=== PATIENT | male | born 1980 | race Hispanic/Latino ===

== ENCOUNTER 2017-09-25 15:12 | Inpatient (IN) | payer SELFPAY ==
[~2017-09-25] VITALS: Ht 172.7 cm; Wt 160.7 kg
[~2017-09-25 15:12] MED LIST: ACETAMINOPHEN500 MG PO; AMLODIPINE BESYL5 MG PO; ASPIR-TRIN325 M1 PO; ASPIRIN325 MG PO; ASPIRIN81 M1 PO; ATENOLOL100 MG PO; CARDIZEM120 MG PO; Ecotrin PO; LABETALOL HCL200 MG PO; LISINOPRIL20 MG PO; LISINOPRIL40 MG PO; MOTRIN800 MG PO; NOHOMEMEDS; NORMODYNE,TRAN200 MG PO; PHENERGAN-CODE120 ML PO; PHENTERMINE HCL30 MG PO; Tenormin PO; Tylenol Regular Stre PO; Zestril,Prinivil PO
[2017-09-25 16:44] LABS: HEMATOCRIT 45.7 % (38.0-50.0); HEMOGLOBIN 15.3 G/DL (12.5-16.6); MCH 29.6 PG (29.0-34.0); MCHC 33.5 G/DL (30.0-36.0); MCV 88.4 FL (86-99); PLATELET COUNT 270 K/uL (156-360); RBC DIS.WIDTH-SD 41.7 % (39-53); RED BLOOD COUNT 5.17 M/uL (4.00-5.50); WHITE BLOOD COUNT 8.6 K/uL (4.1-10.2)
[2017-09-25 16:54] LABS: CHLORIDE 108 mEq/L (99-109); POTASSIUM 4.2 mEq/L (3.7-5.4); SODIUM 143 mEq/L (136-147)
[2017-09-25 16:56] LABS: GLUCOSE 106 mg/dL (70-99)
[2017-09-25 17:00] LABS: CREATININE 0.8 mg/dL (0.6-1.3); GFR ESTIMATE (CALCULATED) > 59 mL/min/ (58.99-99999)
[2017-09-25 17:01] LABS: UREA NITROGEN (BUN) 15 mg/dL (9-23)
[2017-09-25 17:05] LABS: TROP-I INTERPRETATION NEGATIVE; TROPONIN-I < 0.01 ng/mL (0.0-0.30)
[2017-09-25 17:43] LABS: D-DIMER ELISA < 150.00 ng/mLDDU (<230)
[2017-09-25] MEDS ORDERED: TENORMIN50 MG PO (21:48)
[2017-09-25 22:27] LABS: APPEARANCE CLEAR ((CLEAR)); BILIRUBIN NEGATIVE; BLOOD SMALL; COLOR STRAW ((YELLOW)); GLUCOSE (STRIP) NEGATIVE; KETONES NEGATIVE; LEUKOCYTES NEGATIVE; NITRITE NEGATIVE; PROTEIN (STRIP) NEGATIVE; SPECIFIC GRAVITY 1.023 (1.000-1.030); UROBILINOGEN 0.2 MG/DL (0.2-1.0)
[2017-09-25 22:33] LABS: BACTERIA NONE SEEN /HPF; EPITHELIAL CELLS NONE SEEN /HPF; MUCUS TRACE /LPF; RED BLOOD CELLS 0-5 /HPF (0-5); UCUL ADDED? NO; WHITE BLOOD CELLS 0-5 /HPF (0-5)
[2017-09-26 03:30] VITALS: BP 140/92
[2017-09-26 08:00] VITALS: BP 148/91
[2017-09-26 12:37] VITALS: BP 138/86
[2017-09-26 16:00] VITALS: BP 102/68
[2017-09-26 17:18] LABS: TROP-I INTERPRETATION NEGATIVE; TROPONIN-I < 0.01 ng/mL (0.0-0.30)
[2017-09-26 22:26] LABS: TROP-I INTERPRETATION NEGATIVE; TROPONIN-I < 0.01 ng/mL (0.0-0.30)
[2017-09-27 00:15] VITALS: BP 151/74
[2017-09-27 08:13] VITALS: BP 158/105
[2017-09-27 11:32] VITALS: BP 154/88
[2017-09-27 16:35] VITALS: BP 142/86
[2017-09-27 20:00] VITALS: BP 171/105
[2017-09-27 23:46] VITALS: BP 157/106
[2017-09-28 00:44] LABS: CHLORIDE 106 mEq/L (99-109); POTASSIUM 4.3 mEq/L (3.7-5.4); SODIUM 142 mEq/L (136-147)
[2017-09-28 00:45] LABS: MAGNESIUM 2.1 mg/dL (1.3-2.7)
[2017-09-28 00:46] LABS: GLUCOSE 113 mg/dL (70-99)
[2017-09-28 00:50] LABS: CREATININE 0.9 mg/dL (0.6-1.3); GFR ESTIMATE (CALCULATED) > 59 mL/min/ (58.99-99999)
[2017-09-28 00:51] LABS: UREA NITROGEN (BUN) 13 mg/dL (9-23)
[2017-09-28 00:57] LABS: TROP-I INTERPRETATION NEGATIVE; TROPONIN-I < 0.01 ng/mL (0.0-0.30)
[2017-09-28 03:11] LABS: BASE EXCESS 4.2 mEq/L (-3 to +3); BICARBONATE 31.5 mEq/L (22-26); CARBOXY HGB 2.2 % (0-5); METHEMOGLOBIN 1.6 % (0-1.5); PCO2 57 mm Hg (35-45); PO2 51 mm Hg (80-100); pH 7.35 (7.35-7.45)
[2017-09-28 03:12] LABS: COMMENTS - BLOOD GASES C+; DEVICE RA; SITE RR; TOTAL RESP RATE 20 resp/min
[2017-09-28 04:00] VITALS: BP 131/76
[2017-09-28 08:00] VITALS: BP 175/93
[2017-09-28 12:35] VITALS: BP 156/92
[2017-09-28 16:38] VITALS: BP 158/102
[2017-09-28 20:30] VITALS: BP 150/86
[2017-09-29 00:10] VITALS: BP 145/80
[2017-09-29 04:10] VITALS: BP 132/85
[2017-09-29 06:07] LABS: BASOPHIL (%) 0.6 % (0-1); EOSINOPHIL (%) 6.3 % (0-5); EOSINOPHIL COUNT 0.4 K/uL (0-0.3); HEMATOCRIT 43.1 % (38.0-50.0); HEMOGLOBIN 13.9 G/DL (12.5-16.6); IMMATURE GRANULOCYTE (%) 0.4 % (0.0-0.7); LYMPHOCYTE (%) 16.4 % (15-42); LYMPHOCYTE COUNT 1.1 K/uL (1.0-2.8); MCH 29.1 PG (29.0-34.0); MCHC 32.3 G/DL (30.0-36.0); MCV 90.2 FL (86-99); MONOCYTE (%) 13.4 % (3-12); MONOCYTE COUNT 0.9 K/uL (0-0.8); NEUTROPHIL (%) 62.9 % (45-76); NEUTROPHIL COUNT 4.3 K/uL (1.8-6.4); PLATELET COUNT 247 K/uL (156-360); RBC DIS.WIDTH-CV 13.2 % (11.8-14.6); RBC DIS.WIDTH-SD 43.3 % (39-53); RED BLOOD COUNT 4.78 M/uL (4.00-5.50); WHITE BLOOD COUNT 6.9 K/uL (4.1-10.2)
[2017-09-29 06:26] LABS: CHLORIDE 104 MEQ/L (99-109); CREATININE 0.8 MG/DL (0.6-1.3); GFR ESTIMATE (CALCULATED) > 59 mL/min/ (58.99-99999); GLUCOSE 124 mg/dL (70-99); POTASSIUM 4.1 MEQ/L (3.7-5.4); SODIUM 141 MEQ/L (136-147); UREA NITROGEN (BUN) 14 mg/dL (9-23)
[2017-09-29 08:14] VITALS: BP 155/80
[2017-09-29 10:57] VITALS: BP 164/89
[2017-09-29] MEDS ORDERED: AMOX TR-K CLV1 EAC4 PO (12:44)
[2017-09-29] MEDS ORDERED: BENZONATATE100 MG PO (12:44)
[2017-09-29] MEDS ORDERED: Robitussin DM PO (12:44)
== END 2017-09-29 17:00 | disposition home or self-care (01) | DRG 194 ==
LOC: EME 15:12 → EDOF 21:31 → ENRESERV 21:37 → EDOF 22:17 → 4SOUTH 22:17 → EDOF 22:17 → ENRESERV 22:18 → CANRESERV 22:18 → ENRESERV 22:20 → EDOF 09-26 03:05 → ENRESERV 09-26 03:08 → 4SOUTH 09-26 03:30 → ENRESERV 09-28 04:50 → 4EAST 09-28 07:26
PROVIDERS: Hospitalist; Nurse Practitioner Family; Physician Assistant Medical; Student in an Organized Health Care Education/Training Program
PROC: 5A09357 Assistance with Respiratory Ventilation, Less than 24 Consecutive Hours, Continuous Positive Airway Pressure (ICD-10-PCS; principal; 2017-09-28)
DX: J18.9 Pneumonia, unspecified organism (principal); I10 Essential (primary) hypertension; G47.33 Obstructive sleep apnea (adult) (pediatric); E66.01 Morbid (severe) obesity due to excess calories; J98.11 Atelectasis; E78.5 Hyperlipidemia, unspecified; E66.2 Morbid (severe) obesity with alveolar hypoventilation; R09.02 Hypoxemia; Z68.43 Body mass index [BMI] 50.0-59.9, adult; R60.0 Localized edema; Z79.899 Other long term (current) drug therapy; G43.909 Migraine, unspecified, not intractable, without status migrainosus; Z82.49 Family history of ischemic heart disease and other diseases of the circulatory system; I49.9 Cardiac arrhythmia, unspecified; R00.1 Bradycardia, unspecified; B34.9 Viral infection, unspecified
CPT/HCPCS: 36600; 71046; 71275; 80048; 81003; 82803; 83735; 83880; 84484; 85025; 85027; 85379; 85651; 86038; 86140; 87040; 87070; 87205; 87449; 87502; 93005; 93306; 93970; 94640 76; 94660; 94799; 99202; 99281; 99285; J0295; J0360; J0456; J1650; J1940; J7050; J7120

== ENCOUNTER 2018-02-28 20:27 | Emergency (ER) | payer SELFPAY ==
[~2018-02-28] VITALS: Ht 172.7 cm; Wt 160.9 kg
[~2018-02-28 20:27] MED LIST changes: +AMOX TR-K CLV1 EAC4 PO; +BENZONATATE100 MG PO; +Robitussin DM PO; +TENORMIN50 MG PO
[2018-02-28 21:10] LABS: HEMATOCRIT 43.1 % (38.0-50.0); HEMOGLOBIN 14.5 G/DL (12.5-16.6); MCHC 33.6 G/DL (30.0-36.0); MCV 86.2 FL (86-99); PLATELET COUNT 182 K/uL (156-360); RBC DIS.WIDTH-CV 14.2 % (11.8-14.6); RBC DIS.WIDTH-SD 43.5 % (39-53); WHITE BLOOD COUNT 5.2 K/uL (4.1-10.2)
[2018-02-28 21:28] LABS: ALBUMIN 4.2 g/dL (3.2-4.8); CHLORIDE 103 mEq/L (99-109); POTASSIUM 4.1 mEq/L (3.7-5.4); SODIUM 139 mEq/L (136-147)
[2018-02-28 21:31] LABS: GLUCOSE 103 mg/dL (70-99); TOTAL PROTEIN 7.7 g/dL (6.4-8.3)
[2018-02-28 21:33] LABS: TOTAL BILIRUBIN 0.7 mg/dL (0.0-1.0)
[2018-02-28 21:34] LABS: ALKALINE PHOSPHATASE 137 IU/L (3-129); CREATININE 0.9 mg/dL (0.6-1.3); GFR ESTIMATE (CALCULATED) > 59 mL/min/ (58.99-99999)
[2018-02-28 21:35] LABS: UREA NITROGEN (BUN) 10 mg/dL (9-23)
[2018-02-28 21:36] LABS: AST (GOT) 65 IU/L (2-34)
[2018-02-28 21:37] LABS: ALT (GPT) 109 IU/L (3-49)
[2018-02-28 21:46] LABS: APPEARANCE CLEAR ((CLEAR)); BILIRUBIN NEGATIVE; BLOOD NEGATIVE; COLOR YELLOW ((YELLOW)); GLUCOSE (STRIP) NEGATIVE; KETONES NEGATIVE; LEUKOCYTES NEGATIVE; NITRITE NEGATIVE; PROTEIN (STRIP) 30; SPECIFIC GRAVITY 1.015 (1.000-1.030); UCUL ADDED? NO; UROBILINOGEN 0.2 MG/DL (0.2-1.0)
[2018-03-01 00:57] VITALS: BP 131/73
== END 2018-03-01 00:41 | disposition home or self-care (01) ==
LOC: EME 20:27
PROVIDERS: Nurse Practitioner Family
DX: B34.9 Viral infection, unspecified (principal); R50.9 Fever, unspecified; R79.89 Other specified abnormal findings of blood chemistry; R30.0 Dysuria; I10 Essential (primary) hypertension; Z87.891 Personal history of nicotine dependence
CPT/HCPCS: 76705; 80053; 81003; 83605; 85027; 99281; 99285; J7030

== ENCOUNTER 2018-03-05 00:08 | Inpatient (IN) | payer SELFPAY ==
[~2018-03-05] VITALS: Ht 172.7 cm; Wt 161.8 kg
[2018-03-05] VITALS (7 sets, daily range): BP systolic 125–160; BP diastolic 74–99
[2018-03-05 01:36] LABS: HEMATOCRIT 39.9 % (38.0-50.0); HEMOGLOBIN 13.3 G/DL (12.5-16.6); MCH 28.5 PG (29.0-34.0); MCHC 33.3 G/DL (30.0-36.0); MCV 85.4 FL (86-99); PLATELET COUNT 202 K/uL (156-360); RBC DIS.WIDTH-CV 14.6 % (11.8-14.6); RBC DIS.WIDTH-SD 44.6 % (39-53); RED BLOOD COUNT 4.67 M/uL (4.00-5.50); WHITE BLOOD COUNT 6.5 K/uL (4.1-10.2)
[2018-03-05 01:46] LABS: APPEARANCE CLEAR ((CLEAR)); BILIRUBIN NEGATIVE; BLOOD NEGATIVE; COLOR YELLOW ((YELLOW)); GLUCOSE (STRIP) NEGATIVE; KETONES NEGATIVE; LEUKOCYTES NEGATIVE; NITRITE NEGATIVE; PROTEIN (STRIP) 100; SPECIFIC GRAVITY 1.025 (1.000-1.030); UROBILINOGEN 0.2 MG/DL (0.2-1.0)
[2018-03-05 01:47] LABS: ALBUMIN 3.8 g/dL (3.2-4.8)
[2018-03-05 01:48] LABS: CHLORIDE 102 mEq/L (99-109); POTASSIUM 4.4 mEq/L (3.7-5.4); SODIUM 136 mEq/L (136-147)
[2018-03-05 01:49] LABS: BACTERIA RARE /HPF; EPITHELIAL CELLS NONE SEEN /HPF; MUCUS TRACE /LPF; UCUL ADDED? NO; WHITE BLOOD CELLS 0-5 /HPF (0-5)
[2018-03-05 01:50] LABS: GLUCOSE 148 mg/dL (70-99); TOTAL PROTEIN 7.4 g/dL (6.4-8.3)
[2018-03-05 01:52] LABS: TOTAL BILIRUBIN 0.6 mg/dL (0.0-1.0)
[2018-03-05 01:53] LABS: ALKALINE PHOSPHATASE 125 IU/L (3-129)
[2018-03-05 01:54] LABS: CREATININE 0.9 mg/dL (0.6-1.3); GFR ESTIMATE (CALCULATED) > 59 mL/min/ (58.99-99999)
[2018-03-05 01:55] LABS: AST (GOT) 51 IU/L (2-34); UREA NITROGEN (BUN) 9 mg/dL (9-23)
[2018-03-05 01:57] LABS: ALT (GPT) 97 IU/L (3-49); CREATINE KINASE 129 IU/L (1-294); LIPASE 33 U/L (1.0-51.0)
[2018-03-05 01:58] LABS: ERTH.SED.RATE 40 MM/HR (0-15); TROP-I INTERPRETATION NEGATIVE; TROPONIN-I 0.01 ng/mL (0.0-0.30)
[2018-03-05 02:54] LABS: C-REACTIVE PROTEIN 58.7 MG/L (0-10)
[2018-03-05 03:45] LABS: MONOSPOT (MONONUCLEOSIS SEROL) NEGATIVE
[2018-03-05 06:36] LABS: TROP-I INTERPRETATION NEGATIVE; TROPONIN-I 0.02 ng/mL (0.0-0.30)
[2018-03-05] MEDS ORDERED: HYDROCHLOROTHIA25 MG PO (11:54)
[2018-03-05] MEDS ORDERED: AZITHROMYCIN250 MG1 PO (11:56)
[2018-03-05 13:20] LABS: TROP-I INTERPRETATION NEGATIVE; TROPONIN-I 0.01 ng/mL (0.0-0.30)
[2018-03-05 17:06] LABS: HEMATOCRIT 40.3 % (38.0-50.0); HEMOGLOBIN 12.9 G/DL (12.5-16.6); MCH 27.7 PG (29.0-34.0); MCV 86.5 FL (86-99); PLATELET COUNT 203 K/uL (156-360); RBC DIS.WIDTH-CV 14.7 % (11.8-14.6); RBC DIS.WIDTH-SD 46.7 % (39-53); RED BLOOD COUNT 4.66 M/uL (4.00-5.50); WHITE BLOOD COUNT 5.9 K/uL (4.1-10.2)
[2018-03-05 18:24] LABS: ATYPICAL LYMPHOCYTE 19.3 %; BAND NEUTROPHILS 4.4 % (0-8.0); EOSINOPHIL ABS CT 0.2; EOSINOPHILS 2.6 % (0-5.0); LYMPHOCYTES 21.1 % (15.0-45.0); MONOCYTES 3.5 % (0-9.0); PLAT.SUFFICIENCY ADEQUATE; SEG.NEUTROPHILS 46.5 % (46.0-76.0); SMUDGE CELLS 18.4
[2018-03-06 06:39] LABS: HEMATOCRIT 38.7 % (38.0-50.0); HEMOGLOBIN 12.6 G/DL (12.5-16.6); MCH 28.3 PG (29.0-34.0); MCHC 32.6 G/DL (30.0-36.0); MCV 86.8 FL (86-99); PLATELET COUNT 196 K/uL (156-360); RBC DIS.WIDTH-CV 14.9 % (11.8-14.6); RBC DIS.WIDTH-SD 47.1 % (39-53); RED BLOOD COUNT 4.46 M/uL (4.00-5.50); WHITE BLOOD COUNT 6.1 K/uL (4.1-10.2)
[2018-03-06 06:59] LABS: CHLORIDE 101 MEQ/L (99-109); GFR ESTIMATE (CALCULATED) > 59 mL/min/ (58.99-99999); GLUCOSE 115 mg/dL (70-99); POTASSIUM 4.7 MEQ/L (3.7-5.4); SODIUM 136 MEQ/L (136-147); UREA NITROGEN (BUN) 9 mg/dL (9-23)
[2018-03-06 08:29] VITALS: BP 129/75
[2018-03-06 10:23] LABS: LYME DISEASE SEROLOGY SCREEN NEGATIVE (NEGATIVE)
[2018-03-06 12:09] LABS: HIV-1/2 AB/AG COMBO Nonreactive
[2018-03-06 15:48] VITALS: BP 122/76
[2018-03-07 00:08] VITALS: BP 156/72
[2018-03-07 07:42] VITALS: BP 136/80
[2018-03-07 10:58] LABS: ALBUMIN 3.8 G/DL (3.2-4.8); ALKALINE PHOSPHATASE 104 IU/L (3-129); ALT (GPT) 80 IU/L (3-49); AST (GOT) 44 IU/L (2-34); DIRECT BILIRUBIN 0.1 mg/dL (0.0-0.3); TOTAL BILIRUBIN 0.5 MG/DL (0.0-1.0)
[2018-03-07 15:32] VITALS: BP 137/80
[2018-03-08 00:39] VITALS: BP 126/68
[2018-03-08 06:53] LABS: HEMATOCRIT 37.8 % (38.0-50.0); HEMOGLOBIN 12.1 G/DL (12.5-16.6); MCV 87.5 FL (86-99); PLATELET COUNT 254 K/uL (156-360); RBC DIS.WIDTH-CV 14.9 % (11.8-14.6); RBC DIS.WIDTH-SD 47.6 % (39-53); RED BLOOD COUNT 4.32 M/uL (4.00-5.50); WHITE BLOOD COUNT 6.1 K/uL (4.1-10.2)
[2018-03-08 07:16] LABS: ALKALINE PHOSPHATASE 87 IU/L (3-129); ALT (GPT) 85 IU/L (3-49); AST (GOT) 45 IU/L (2-34); CHLORIDE 104 MEQ/L (99-109); CREATININE 0.8 MG/DL (0.6-1.3); GFR ESTIMATE (CALCULATED) > 59 mL/min/ (58.99-99999); GLUCOSE 138 mg/dL (70-99); SODIUM 141 MEQ/L (136-147); TOTAL BILIRUBIN 0.5 MG/DL (0.0-1.0); TOTAL PROTEIN 7.2 G/DL (6.4-8.3); UREA NITROGEN (BUN) 11 mg/dL (9-23)
[2018-03-08 07:18] LABS: ABS NEUTROPHIL COUNT 4.4; BAND NEUTROPHILS 3.5 % (0-8.0); EOSINOPHIL ABS CT 0.1; EOSINOPHILS 0.9 % (0-5.0); LYMPHOCYTES 14.9 % (15.0-45.0); MONOCYTES 5.3 % (0-9.0); PLAT.SUFFICIENCY ADEQUATE; SMUDGE CELLS 13.2
[2018-03-08 07:24] LABS: SEG.NEUTROPHILS 68.4 % (46.0-76.0)
[2018-03-08 07:53] VITALS: BP 136/74
[2018-03-08] MEDS ORDERED: MEDROL DOSEPAK4 MG PO (08:59)
[2018-03-08] MEDS ORDERED: VALACYCLOVIR500 MG PO (08:59)
[2018-03-08] MEDS ORDERED: AMLODIPINE BES2.5 MG PO (08:59)
[2018-03-08] MEDS ORDERED: VALACYCLOVIR1000 MG PO (09:54)
[2018-03-09 04:21] LABS: QGTB-NIL 0.17 IU/mL (()); QUANTIFERON TB GOLD NEGATIVE (Negative); TB AG-NIL 0.04 IU/mL (())
[2018-03-11 16:16] LABS: Flow Clinical Information R/O LYMPHOMA (()); Flow Number of Markers 22 (()); Flow Spec Viability 73 % (()); Flow Specimen Type PERIPHERAL BLOOD (())
== END 2018-03-08 11:44 | disposition home or self-care (01) | DRG 194 ==
LOC: EME 00:08 → EDOF 03:45 → 3EAST 03:45 → ENRESERV 03:50 → 3EAST 05:10
PROVIDERS: Emergency Medicine; Hospitalist; Internal Medicine
DX: J18.9 Pneumonia, unspecified organism (principal); Z68.43 Body mass index [BMI] 50.0-59.9, adult; E66.01 Morbid (severe) obesity due to excess calories; B27.90 Infectious mononucleosis, unspecified without complication; R79.89 Other specified abnormal findings of blood chemistry; I10 Essential (primary) hypertension; G47.33 Obstructive sleep apnea (adult) (pediatric); Z82.49 Family history of ischemic heart disease and other diseases of the circulatory system; Z83.3 Family history of diabetes mellitus; Z87.891 Personal history of nicotine dependence
CPT/HCPCS: 71275; 74177; 80048; 80053; 80076; 81003; 82550; 83605; 83690; 84484; 85025; 85027; 85651; 86140; 86308; 86480 90; 86618; 87040; 87389; 93005; 93306; 93970; 99281; 99285; J0696; J1650; J2543; J2920; J3370; J7030; J7050